=== PATIENT | male | born 1955 | race African-American/Black ===

== ENCOUNTER 2018-05-23 16:20 | Inpatient (IN) | payer OTHER ==
[~2018-05-23] VITALS: Ht 182.9 cm; Wt 139.3 kg
[~2018-05-23 16:20] MED LIST: ASPIR 8181 MG PO; ATENOLOL 50MG T50 MG PO; BENICAR HCT 401 EAC1 PO; CHANTIX1 MG PO; CYMBALTA60 MG PO; FOLIC ACID1 MG PO; HYDROCODONE-APA1 TA1 PO; IRON325 PO; TRAMADOL 50 MG50 MG PO; ULORIC80 MG PO; UNICOMPLEX M TA1 TA1 PO; VITAMIN D2000 UNIT PO; ZOCOR40 MG PO; ZOFRAN ODT4 MG DISSOLVE
[2018-05-23 16:24] VITALS: BP 154/54
[2018-05-23 16:50] LABS: ABSOLUTE BASOPHILS 0.1 thou/uL (0.0-0.2); ABSOLUTE EOSINOPHILS 0.4 thou/uL (0.0-0.7); ABSOLUTE LYMPHOCYTES 1.5 thou/uL (0.8-5.3); ABSOLUTE NEUTROPHILS 6.4 thou/uL (1.6-8.1); BASOPHILS 1.4 %; EOSINOPHILS 4.4 %; HEMATOCRIT 33.4 % (42.0-52.0); MCH 28.8 pg (26.0-34.0); MCHC 32.9 g/dL (28.0-37.0); MCV 87.6 fL (80.0-100.0); MONOCYTES 10.4 %; MPV 7.6 fl. (7.2-11.1); NUCLEATED RBCS 0 /100WBC; PLATELET COUNT* 350 thou/uL (150-400); POLYS 67.8 %; RBC 3.81 mil/uL (4.50-6.00); WBC 9.4 thou/uL (4.0-11.0)
[2018-05-23 16:56] LABS: APTT 30.9 Seconds (25.0-31.3); PROTIME 10.3 Seconds (9.20-11.50)
[2018-05-23 17:03] LABS: ANION GAP 8 mmol/L (7-16); BUN 46 mg/dL (7-18); CALCIUM 8.4 mg/dL (8.5-10.1); CHLORIDE 105 mmol/L (98-107); CO2 27 mmol/L (21-32); GLUCOSE 109 mg/dL (70-99); POTASSIUM 4.4 mmol/L (3.5-5.1); SODIUM 140 mmol/L (136-145); TROPONIN-I LEVEL <0.06 ng/mL (<0.06)
[2018-05-23 17:08] LABS: ALKALINE PHOSPHATASE 122 U/L (46-116); CK-MB MASS 0.7 ng/mL (<0.5-3.6); LIPASE 156 U/L (73-393); NT-PRO BRAIN NAT PEPTIDE 328 pg/mL (<300); SGOT 13 U/L (15-37); SGPT 13 U/L (30-65); TOTAL BILIRUBIN 0.2 mg/dL (<0.1-1.0); TOTAL PROTEIN 7.2 g/dL (6.4-8.2)
[2018-05-23 20:02] LABS: URINE BILIRUBIN NEGATIVE (Negative); URINE BLOOD TRACE (Negative); URINE CLARITY CLEAR; URINE COLOR YELLOW; URINE GLUCOSE-RANDOM NEGATIVE (Negative); URINE KETONES NEGATIVE (Negative); URINE LEUKOCYTES-REFLEX NEGATIVE (Negative); URINE NITRITE-REFLEX NEGATIVE (Negative); URINE PROTEIN 2+ (Negative); URINE UROBILINOGEN 0.2 E.U./dl (0.2-1.0)
--- NOTE | 2018-05-23 20:09 | NUR ---
REPORT TAKEN FROM MEMO, AWAITING PATIENT'S ARRIVAL TO FLOOR.
[2018-05-23 20:10] LABS: BACTERIA-REFLEX 1-9 Few /HPF (None Seen); CASTS None Seen /LPF (None Seen); CRYSTALS None Seen /LPF (None Seen); SQUAMOUS 0-3 Few /LPF (0-3); URINE RBC 0-2 Rare /HPF (0-2); URINE WBC-REFLEX 0-5 Rare /HPF (0-5)
[2018-05-23 20:30] VITALS: BP 119/63
[2018-05-23 21:00] VITALS: BP 142/80
[2018-05-24] VITALS (7 sets, daily range): BP systolic 105–158; BP diastolic 72–97
[2018-05-24] MEDS ORDERED: ZETIA10 MG PO (01:48)
[2018-05-24] MEDS ORDERED: LIPITOR 20 MG T20 M1 PO (01:48)
[2018-05-24] MEDS ORDERED: FLOMAX0.4 MG PO (01:49)
[2018-05-24] MEDS ORDERED: NIFEDIPINE ER90 M1 PO (01:50)
[2018-05-24] MEDS ORDERED: IRON325 PO (01:51)
[2018-05-24] MEDS ORDERED: ASPIR 8181 MG PO (01:52)
[2018-05-24] MEDS ORDERED: ZYLOPRIM300 MG PO (01:52)
[2018-05-24] MEDS ORDERED: COREG25 MG PO (01:53)
[2018-05-24] MEDS ORDERED: HYDRALAZINE 10M10 MG PO (01:57)
[2018-05-24] MEDS ORDERED: ZANTAC 150MG T150 MG PO (01:57)
[2018-05-24] MEDS ORDERED: SODIUM BICARBO650 M3 PO (01:59)
[2018-05-24] MEDS ORDERED: LASIX 20 MG TAB20 MG PO (02:00)
--- NOTE | 2018-05-24 04:55 | NUR ---
PATIENT RESTED IN BED, NO ACUTE CHANGES. PATIENT DID NOT SHOW SIGNS OF DISTRESS. FALL PRECAUTIONS IN PLACE, CALL LIGHT WITHIN REACH, HOURLY ROUNDING OBSERVED, BED ALARM ON.
[2018-05-24 05:23] LABS: HEMATOCRIT 31.2 % (42.0-52.0); HEMOGLOBIN 10.3 gm/dL (14.0-18.0); MCH 29.1 pg (26.0-34.0); MCHC 33.1 g/dL (28.0-37.0); MCV 87.9 fL (80.0-100.0); MPV 7.2 fl. (7.2-11.1); RBC 3.55 mil/uL (4.50-6.00); RDW-CV 16.8 % (10.5-14.5)
[2018-05-24 05:59] LABS: CALCIUM 8.7 mg/dL (8.5-10.1); CREATININE 5.1 mg/dL (0.6-1.3); MAGNESIUM 2.1 mg/dL (1.8-2.4)
[2018-05-24] MEDS ORDERED: ULORIC80 MG PO (13:12)
[2018-05-24] MEDS ORDERED: CARVEDILOL12.5 MG PO (13:12)
--- NOTE | 2018-05-24 16:00 | NUR ---
ASSUMED PT CARE AT 0730, FULL ASSESMENT DONE CHARTED. PT A/O X4, DENIES PAIN, ORTHOSTATIC BP OBTAINED AND POSITIVE, REFER TO CHARTED VITALS. ALL OTHER VSS, SR ON THE MONITOR. PT INSTRUCTED TO CALL STAFF FOR ASSISTANCE TO AMBULATE, PT VERBALIZED UNDERSTANDING. DISCHARGE ORDERS RECIEVED, PT GIVEN DISCHARGE PAPERWORK AND INSTRUCTED ON MED CHANGES, PORVIDED WITH SCRIPT. PT LEFT UNIT WITH STAFF AT APPROX 1510 TO MEET RIDE AT FRONT DOOR.
--- NOTE | 2018-05-25 16:30 | EKG ---
[place] [address] ELECTROCARDIOGRAM REPORT Name: PILAR CAAL JR Room: [address] DIS IN M.R.#: [id number] Admission: 05/23/18 Attend Phys: Montserrat Overton MD Discharge: 05/24/18 Date of : 53 Report #: [id number] THIS REPORT FOR: //name// [facility] ED Test Date: 2018-05-23 Test Time: 16:25:57 Pat Name: PILAR CAAL Department: Room: [facility] Gender: M [employer]: Nikki SNIDER : 1955 Requested By: Jono Peoples Order Number: [id number] MD: Werner Lopez Measurements Intervals [place] Rate: 81 P: 47 MI: 146 QRS: 2 QRSD: 101 T: 150 QT: 367 QTc: 426 Interpretive Statements Sinus rhythm Probable left atrial enlargement Abnormal R-wave progression, early transition Abnrm T, consider ischemia, anterolateral lds Compared to ECG 11/27/2012 12:25:04 Possible ischemia now present Electronically Signed On 05-25-2018 16:29:57 [employer] by Werner Lopez [email or web address] <ELECTRONICALLY SIGNED> By: Werner Lopez MD, FACC 05/25/18 1629 1625 1625 Werner Lopez MD, FAC /EPI
--- NOTE | 2018-05-26 13:52 | CON ---
[address] [address] CONSULTATION Name: PILAR CAAL JR Room: [address] IN M.R.#: [id number] Admission: 05/23/18 Attend Phys: Montserrat Overton MD Discharge: 05/24/18 Date of : 53 Report #: [id number] THIS REPORT FOR: //name// CC: Montserrat Mitchell DATE OF SERVICE: 05/24/2018 HISTORY OF PRESENT ILLNESS: This is a 62-year-old male patient who was evaluated by me for dizziness. He indicates that all the dizziness occurred when he tries to stand up. He had multiple episodes of that. He does not think it becomes worse with movement of the head. He does not have any headache associated with that. It is mainly the lightheadedness. Initially, he did not check his blood pressure. Subsequently, his blood pressure has been checked and he has a significant postural drop in blood pressure. It has been documented here and according to him, it has been documented by somebody else outside. REVIEW OF SYSTEMS: Positive for kidney disease for which he is on a transplant list. He did undergo an MRI of the brain. An MRI of the brain does not appear to be showing any definite abnormality. His last creatinine was 5.1. He does not have any significant ambulation difficulty associated with this. A 14-point review of systems was carried out and this was his relevant 14-point review of systems. PAST MEDICAL HISTORY: Kidney problem. FAMILY HISTORY: Negative for early age stroke. SOCIAL HISTORY: Does not drink any alcohol. PHYSICAL EXAMINATION: Indicate he is alert, responsive, able to follow simple and complex command. His cranial nerve examination is unremarkable. Strength, sensation, reflexes and tone is symmetrical. There is no meningeal sign. I could not look at the patient's fundus. He is a very well developed individual. He does not have any dysmorphic features of eyes, ears and face. His vision and hearing looks adequate. Cardiac examination is unremarkable. No respiratory difficulty was noticed. His blood pressure dropped from 149 to 105 when he tried to stand up. He did have an MRI of the brain done, which does not show any acute changes. He had a carotid Doppler done, which does not show any hemodynamically significant stenosis. IMPRESSION: The patient's dizziness is most likely related to the postural hypotension. I will recommend working him up for any etiology in that regard and managing that. RECOMMENDATIONS: Presently, I do not think we need to [place] [address] CONSULTATION Name: PILAR CAAL JR Room: [address]#: [id number] Admission: 05/23/18 Attend Phys: Montserrat Overton MD Discharge: 05/24/18 Date of : 53 Report #: [id number] If more symptoms occur when the dizziness is not postural or symptoms continue after treating her postural hypotension, then neurological workup can be done. Thank you very much for this referral. <ELECTRONICALLY SIGNED> By: Varun Quiroga MD 05/26/18 1352 1205 [id number] Quiroga MD /nt
== END 2018-05-24 15:14 | disposition home or self-care (01) | DRG 683 ==
LOC: M.ERS 16:20 → M.TBA-ER 17:35 → M.2W 20:42
PROVIDERS: Family Medicine; ADMIT Internal Medicine
DX: N17.9 Acute kidney failure, unspecified (principal); Z68.41 Body mass index [BMI] 40.0-44.9, adult; I12.9 Hypertensive chronic kidney disease with stage 1 through stage 4 chronic kidney disease, or unspecified chronic kidney disease; D64.9 Anemia, unspecified; E66.01 Morbid (severe) obesity due to excess calories; F32.9 Major depressive disorder, single episode, unspecified; M10.9 Gout, unspecified; E78.00 Pure hypercholesterolemia, unspecified; N18.9 Chronic kidney disease, unspecified; I25.10 Atherosclerotic heart disease of native coronary artery without angina pectoris; Z87.891 Personal history of nicotine dependence; Z85.528 Personal history of other malignant neoplasm of kidney; Z88.8 Allergy status to other drugs, medicaments and biological substances; Z79.899 Other long term (current) drug therapy